=== PATIENT | male | born 1940 | race Caucasian/White ===

== ENCOUNTER → 2021-02-10 | Outpatient (CLI) | payer MEDICARE, SELFPAY ==
[2021-02-10 17:03] LABS: Bacteria 0 SEEN /hpf (None Seen); Mucous, Urine 0 SEEN /hpf (<or=2+); Squamous Epithelial Cells - UA 0 SEEN /hpf (0-5); White Blood Cells 0 SEEN /hpf (0-5)
[2021-02-10 17:45] LABS: Color, Urine Yellow (Yellow); Glucose, Dipstick Normal (Normal); Ketone-Dipstick Negative (Negative); Leukocyte Esterase-Dipstick Negative /ul (Negative); Nitrite-Dipstick Negative (Negative); Occult Blood-Urine 50 /ul (Negative); Protein-Dipstick Negative (Negative); Urine Bilirubin Dipstick Negative (Negative); Urine Clarity Clear (Clear); Urine Urobilinogen Normal (Normal)
[2021-02-10 17:52] LABS: Calcium Oxalate Crystals Ur 0 /hpf (<or=2+); Red Blood Cells-Urine 0-5 SEEN /hpf (0-5)
== END | disposition home or self-care (01) ==
PROVIDERS: Referring Provider Nurse Practitioner Adult Health; Visit Provider Nurse Practitioner Adult Health
DX: R31.29 Other microscopic hematuria (principal)
CPT/HCPCS: 81001

== ENCOUNTER → 2021-06-26 11:40 | Outpatient (CLI) | payer MEDICARE, SELFPAY ==
--- NOTE | 2021-06-26 11:45 | CT_ITS ---
STUDY: CT ABDOMEN AND PELVIS WITHOUT CONTRAST REASON FOR EXAM: Male, 80 years old. 2 day history of left flank pain. Gross hematuria. Prior splenectomy. RADIATION DOSAGE (If Supplied By Facility): CTDIvol = ( 24.18 ) mGy, DLP = ( 1156.90 ) mGycm TECHNIQUE: Transaxial images were obtained from the dome of the diaphragm to the symphysis pubis without oral contrast, and without intravenous contrast. Sagittal and coronal images were reconstructed. Individualized dose optimization techniques were used for this CT. COMPARISON: None. FINDINGS: There is elevation of the left hemidiaphragm. Mild increased markings at the lung bases suggestive of scarring. Tiny calcified granuloma in the left lower lobe. Suggestive of a The visualized portions of the heart are within normal limits. Normal liver. There are multiple gallstones. Normal spleen. There are pancreatic calcifications in the distribution of the ducts consistent with chronic pancreatitis. Pancreatic atrophy. Normal bilateral adrenal glands. Small nonobstructive right intrarenal calculi. The largest measures 7.6 mm in the lower pole. Tiny nonobstructive plaque within the upper pole calyx of the left kidney. Mild degree nonspecific bilateral perinephric stranding. Normal visualized stomach. Normal small intestine. There are multiple colonic diverticula consistent with diverticulosis. The appendix is visualized and appears normal. There is diffuse atherosclerotic calcification of the abdominal aorta and major visceral branches., without a demonstrated aneurysm. Normal inferior vena cava. Normal retroperitoneum. Nonspecific increased markings in the root of the mesenteric fat. This is a nonspecific finding. Normal urinary bladder. The prostate measures 3.8 cm x 4.4 cm. Focal calcifications in the central portion of the prostate. There is a 2 cm hypodensity in the midportion of the prostate. Normal abdominal wall. There are diffuse degenerative changes of the visualized lumbar spine. The patient is status post right thoracotomy placement. This causes beam hardening artifact in the pelvis. CT/Abdomen/Pelvis without Cont IMPRESSION: Bilateral nonobstructive intrarenal calculi. Mild degree of nonspecific perinephric stranding. Pancreatic atrophy. Diffuse pancreatic calcifications. Electronically Signed: Keith Martinez MD at 12:23 EST , Service support ,
== END ==
PROVIDERS: PCP Physician Assistant; Referring Provider Urology; Visit Provider Urology
DX: R31.0 Gross hematuria (principal); R10.84 Generalized abdominal pain
CPT/HCPCS: 74176

== ENCOUNTER 2022-09-28 10:11 | Day surgery (SDC) | payer MEDICARE, SELFPAY ==
[2022-09-28] VITALS (8 sets, daily range): BP systolic 78–119; BP diastolic 51–88; PULSE 54–78; RESP 14–16; TEMP 36.3–36.7; O2SAT 91–100; BMI 29.0
--- NOTE | 2022-09-28 | IMM_PTH ---
PATIENT: OSBALDO OLEARY LOC: EN U#:[id number] AGE/SX: 82/M ROOM: RE09/28/[address]: Dr. Maco Ram DO : 1940 BED: DIS: 09/28/2022 SPEC #: [id number] RECD: 09/30/22 13:17 STATUS: JOY KIAH #: [id number] NAYELY: 09/28/22 00:[address]: Maco Ram DEPT: IMMUNOHISTOCHEMISTRY RECD BY: Garima Esteban Tissues: A - Esophagus, NOS Procedures: P53 (initial) KI-67 (add) PHYSICIAN & INSTITUTION [place] [id number] SPECIMEN INFORMATION: Tissue Source: A ? Distal esophagus Clinical Info: Dysphagia, screening Specimen Number: [id number] CPT code: 98304, 62635 METHODOLOGY: Deparaffinized sections of prefer/formalin-fixed tissue or PAP/DQ stained slides are incubated with monoclonal/polyclonal antibodies/oligonucleotide probes. Localization is made via biotin free immunoperoxidase method. Appropriate controls are performed and reacted as expected. Results on target cell population are indicated in the following table: RESULTS: ANTIBODY / CLONE RESULT Block A P53 (DO-7) positive, focal Ki-67 (30-9) positive, low to moderate These tests were developed and their performance characteristics determined by [facility]. They may not have been cleared or approved by the U.S. Food and Drug Administration. The FDA has determined that such clearance or approval is not necessary. The above immunohistochemical/dualISH markers are ordered and reviewed by the Pathologist. INTERPRETATION: A. Distal esophagus, biopsy: Indefinite for dysplasia. DANIELLA:leroy 10/01/2022
[2022-09-28] MEDS: Lactated Ringers 1,000 ML 15 ML IV (10:40)
--- NOTE | 2022-09-28 11:20 | PCM.HP.BLA ---
History and Physical Date of Admission: 09/28/22 81 M who presents to the office today for Initial consult. Alden established with this clinic 07.29.22 with referral from PCP for evaluation of change in stool, change in taste, esophageal fullness and pain with feeling of dysphagia, rectal bleeding. PMH includes obesity; HTN; right bundle branch block; urolithiasis. ? Pt reports having some stomach issues starting a year or so ago. Has concerns about colon cancer. Last scope he says was 40 or so years ago. Experiencing external hemorrhoids that are worse when bowels are hard. Reports having one normal BM a day with periodic constipation based on what he eats. Does take OTC stool softener and Preparation H for the hemorrhoids which temporarily relieves symptoms. Pt takes Prevacid daily which keeps his acid reflux under control. Does not have trouble swallowing foods but says food does not taste good anymore. Has a bad taste in his mouth all the time that goes deep into his throat. Often wakes up in the morning feeling as though food or saliva collects in his throat. He spends time in the morning clearing his throat. Does not experience any nausea or vomiting. ? ROS Const Constitutional: No fatigue ENT ENT: No difficulty swallowing Cardio Cardiology: Positive for other Gastro GI: Positive for bloating, constipation, diarrhea, heartburn and excessive flatus; No abdominal pain, belching, change in bowel habits, change in stool character, coffee ground emesis, cramping, difficulty swallowing, feeling full early, incontinent of stools, Vomiting blood/hematemesis, Blood in stool, loose stools, Black,tarry stools, nausea/dyspepsia, pain with swallowing, vomiting or other Musc Musculoskeletal: Positive for back pain and Arthritis; No joint pain Skin Skin: No yellowing of the eye or itchy eyes Psych Psychiatric: No anxiety and No depression Endo Endocrine: No fatigue Aller/Imm Allergy/Immunologic: No itchy eyes Michael/Lymp Hematologic/Lymphatic: No easy bleeding or easy bruising Exam Const General: cooperative and comfortable Nutritional Appearance: average body habitus and well nourished HENCA Head: normal to inspection Ears: hearing grossly normal bilaterally Nose: external nose normal Face and sinus: normal facial exam Mouth: oral mucosae normal Throat: posterior oropharynx normal Eyes General: appearance normal, both eyes and all related structures Neck Neck: normal visual inspection Chest Chest palpation & inspection: normal inspection of the chest and normal palpation of entire chest wall Resp Effort & Inspection: normal respiratory effort Auscultation: Bilateral: Clear to Auscultation Cardio Palpation: normal PMI Rate: regular rate Rhythm: regular rhythm GI Inspection: normal to inspection Auscultation: normal bowel sounds Percussion: normal to percussion Palpation: no hepatosplenomegaly Skin General: no rashes or lesions noted Neuro General: patient alert Extrem General: normal to inspection Psych Affect: normal affect Quality Reporting Tobacco Screening ([facility] 138) Smoking Status: Never smoker Assessment and Plan Assessment and Plan (1) Dysphagia: ?Status:?Acute ?Plan: The differential diagnosis for his esophageal dysphagia in the setting of gastroesophageal reflux disease and bowel smelling taste in the back of his mouth would be a Zenker's diverticulum, erosive esophagitis, eosinophilic esophagitis, hiatal hernia or a thanks.? He will undergo an upper endoscopy to his upper GI tract.? He was explained alternatives, risks, benefits, infection. He will have an ASA of 3. Continue current medications. (2) Encounter for screening colonoscopy for [id number] patient: ?Status:?Acute ?Plan: He will screening colonoscopy.? He was explained alternatives, risk, benefits of bleeding, infection, sepsis, perforation and .? He willhave an ASA of 3. I have examined the patient and the H&P has been reviewed. There are no clinical changes since date of exam.
--- NOTE | 2022-09-28 11:45 | EGD_PTH ---
PATIENT: OSBALDO OLEARY LOC: EN U#:[id number] AGE/SX: 82/M ROOM: RE09/28/[address]: Dr. Maco Ram DO : 1940 BED: DIS: 09/28/2022 SPEC #: [id number] RECD: 09/28/22 13:51 STATUS: JOY RENEMariajose #: [id number] NAYELY: 09/28/22 11:[address]: Maco Ram DEPT: SURGICAL PATHOLOGY RECD BY: Kimmy Alaniz Tissues: A - Esophagus, NOS B - Cecum, NOS Procedures: Special Stain Group II Surgery Specimen Level IV Alcian Blue/PAS (control) HEADER OPERATION: Colonoscopy, EGD (MAC) and biopsy PRE-OP DIAGNOSIS: Dysphagia, screening TISSUE SUBMITTED: A ? Distal esophagus biopsy, B ? Cecal polyp MICROSCOPIC DIAGNOSIS A. Distal esophagus, biopsy: Fragments of gastroesophageal mucosa with focal intestinal metaplasia (goblet cell metaplasia), consistent with Hunter's esophagus. Chronic inflammation. Indefinite for dysplasia. See comment. B. Cecal polyp, biopsy: Fragments of tubular adenoma. SJ:leroy 09/30/2022 COMMENT A. Immunohistochemistry ([id number]) for P53 and Ki-67 will be performed and results will be reported separately. Alcian blue/PAS stain with matched control is used in the evaluation of the specimen. MICROSCOPIC DESCRIPTION Slides are reviewed. GROSS DESCRIPTION A - Received in fixative is one container labeled with the patient's name and designated distal esophagus. The specimen consists of multiple irregular fragments of light mcnamara soft tissue that in aggregate measure 1.5 x 0.6 x 0.1 cm. The specimen is totally submitted in one cassette. B - Received in fixative is one container labeled with the patient's name and designated cecal polyp. The specimen consists of multiple irregular fragments of light mcnamara soft tissue that in aggregate measure 1.0 x 1.0 x 0.1 cm. The specimen is totally submitted in one cassette. / AM:leroy 09/29/2022 TC:3 CPT: 74471 x2, 95665
--- NOTE | 2022-09-28 12:35 | OP.EGD_ITS ---
Patient Name: Alden Butler Procedure Date: 09/28/2022 11:57 AM Date of : 1940 Age: 82 Procedure: Upper GI endoscopy Indications: Dysphagia Providers: Maco Ram DO Medicines: Monitored Anesthesia Care Patient Profile: This is an 82 year old male. Refer to note in patient chart for documentation of history and physical. Patient has symptoms of chronic dysphagia. Complications: No immediate complications. Procedure: Pre-Anesthesia Assessment: - Prior to the procedure, a History and Physical was performed, and patient medications and allergies were reviewed. The risks and benefits of the procedure and the sedation options and risks were discussed with the patient. All questions were answered and informed consent was obtained. Patient identification and proposed procedure were verified by the physician in the pre-procedure area. Mental Status Examination: alert and oriented. Prophylactic Antibiotics: The patient does not require prophylactic antibiotics. Prior Anticoagulants: The patient has taken no previous anticoagulant or antiplatelet agents. ASA Grade Assessment: II - A patient with mild systemic disease. After reviewing the risks and benefits, the patient was deemed in satisfactory condition to undergo the procedure. The anesthesia plan was to use monitored anesthesia care (MAC). Immediately prior to administration of medications, the patient was re-assessed for adequacy to receive sedatives. The heart rate, respiratory rate, oxygen saturations, blood pressure, adequacy of pulmonary ventilation, and response to care were monitored throughout the procedure. The physical status of the patient was re-assessed after the procedure. After obtaining informed consent, the endoscope was passed under direct vision. Throughout the procedure, the patient's blood pressure, pulse, and oxygen saturations were monitored continuously. The Colonoscope was introduced through the mouth, and advanced to the second part of duodenum. The upper GI endoscopy was accomplished without difficulty. The patient tolerated the procedure well. Scope In: 12:08:21 PM Scope Out: 12:14:02 PM Total Procedure Duration Time 0 hours 5 minutes 41 seconds Findings: A moderate Schatzki ring was found in the lower third of the esophagus. A guidewire was placed and the scope was withdrawn. Dilation was performed with a Savary dilator with no resistance at 45 Fr. The dilation site was examined and showed moderate improvement in luminal narrowing. Estimated blood loss was minimal. The Z-line was irregular and was found 39 cm from the incisors. Biopsies were taken with a cold forceps for histology. Verification of patient identification for the specimen was done. Estimated blood loss was minimal. A medium-sized hiatal hernia was present. Diffuse prominent gastric folds were found in the gastric body. The first portion of the duodenum was normal. Impression: - Moderate Schatzki ring. Dilated. - Z-line irregular, 39 cm from the incisors. Biopsied. - Medium-sized hiatal hernia. - Enlarged gastric folds. - Normal first portion of the duodenum. Recommendation: - Discharge patient to home. - Resume previous diet. - Continue present medications. - Await pathology results. Procedure Code(s): --- Professional --- 10593, Esophagogastroduodenoscopy, flexible, transoral; with insertion of guide wire followed by passage of dilator(s) through esophagus over guide wire 10650, 59,51, Esophagogastroduodenoscopy, flexible, transoral; with biopsy, single or multiple CPT copyright 2017 [employer]. All rights reserved. The codes documented in this report are preliminary and upon cms expert review may be revised to meet current compliance requirements. Maco Ram DO 09/28/2022 12:35:05 PM This report has been signed electronically. Number of Addenda: 0 Note Initiated On: 09/28/2022 11:57 AM
--- NOTE | 2022-09-28 12:35 | OP.CCLET_ITS ---
09/28/2022 Lady Weber Re : Upper GI endoscopy procedure for Alden Griffinr Tia This procedure was performed on Wednesday, September 28, 2022. My impressions and recommendations are as follows: Impressions : - Moderate Schatzki ring. Dilated. - Z-line irregular, 39 cm from the incisors. Biopsied. - Medium-sized hiatal hernia. - Enlarged gastric folds. - Normal first portion of the duodenum. Recommendations : - Discharge patient to home. - Resume previous diet. - Continue present medications. - Await pathology results. My findings are described in the full procedure note, which is enclosed. If I can be of further assistance, please feel free to contact me at . Sincerely, Maco Ram, 09/28/2022 12:35:05 PM This report has been signed electronically.
--- NOTE | 2022-09-28 12:40 | OP.CCLET_ITS ---
09/28/2022 Tia Re : Colonoscopy procedure for Alden Griffinr Tia This procedure was performed on Wednesday, September 28, 2022. My impressions and recommendations are as follows: Impressions : - Diverticulosis in the recto-sigmoid colon, in the sigmoid colon and in the descending colon. - One 9 mm polyp in the cecum, removed with a cold snare. Resected and retrieved. - Melanosis in the colon. Recommendations : - Discharge patient to home. - Resume previous diet. - Continue present medications. - Await pathology results. - Repeat colonoscopy in 5 years for surveillance based on pathology results. My findings are described in the full procedure note, which is enclosed. If I can be of further assistance, please feel free to contact me at . Sincerely, Maco Ram, 09/28/2022 12:39:40 PM This report has been signed electronically.
--- NOTE | 2022-09-28 12:40 | OP.COLON_ITS ---
Patient Name: Alden Butler Procedure Date: 09/28/2022 12:14 PM Date of : 1940 Age: 82 Procedure: Colonoscopy Indications: Screening for colorectal malignant neoplasm Providers: Maco Ram DO Medicines: Monitored Anesthesia Care Patient Profile: This is an 82 year old male. Refer to note in patient chart for documentation of history and physical. Patient has symptoms of chronic dysphagia. Last Colonoscopy: 10 years ago. Complications: No immediate complications. Procedure: Pre-Anesthesia Assessment: - Prior to the procedure, a History and Physical was performed, and patient medications and allergies were reviewed. The risks and benefits of the procedure and the sedation options and risks were discussed with the patient. All questions were answered and informed consent was obtained. Patient identification and proposed procedure were verified by the physician in the pre-procedure area. Mental Status Examination: alert and oriented. Prophylactic Antibiotics: The patient does not require prophylactic antibiotics. Prior Anticoagulants: The patient has taken no previous anticoagulant or antiplatelet agents. ASA Grade Assessment: II - A patient with mild systemic disease. After reviewing the risks and benefits, the patient was deemed in satisfactory condition to undergo the procedure. The anesthesia plan was to use monitored anesthesia care (MAC). Immediately prior to administration of medications, the patient was re-assessed for adequacy to receive sedatives. The heart rate, respiratory rate, oxygen saturations, blood pressure, adequacy of pulmonary ventilation, and response to care were monitored throughout the procedure. The physical status of the patient was re-assessed after the procedure. After I obtained informed consent, the scope was passed under direct vision. Throughout the procedure, the patient's blood pressure, pulse, and oxygen saturations were monitored continuously. The Colonoscope was introduced through the anus and advanced to the cecum, identified by appendiceal orifice and ileocecal valve. The ileocecal valve, appendiceal orifice, and rectum were photographed. Scope In: 12:16:52 PM Scope Withdrawal Time 0 hours 8 minutes 19 seconds Scope Out: 12:27:48 PM Total Procedure Duration Time 0 hours 10 minutes 56 seconds Findings: The perianal and digital rectal examinations were normal. Many small and large-mouthed diverticula were found in the recto-sigmoid colon, sigmoid colon and descending colon. A 9 mm polyp was found in the cecum. The polyp was sessile. The polyp was removed with a cold snare. Resection and retrieval were complete. Verification of patient identification for the specimen was done. Estimated blood loss was minimal. A diffuse area of moderate melanosis was found in the entire colon. Impression: - Diverticulosis in the recto-sigmoid colon, in the sigmoid colon and in the descending colon. - One 9 mm polyp in the cecum, removed with a cold snare. Resected and retrieved. - Melanosis in the colon. Recommendation: - Discharge patient to home. - Resume previous diet. - Continue present medications. - Await pathology results. - Repeat colonoscopy in 5 years for surveillance based on pathology results. Procedure Code(s): --- Professional --- 42174, Colonoscopy, flexible; with removal of tumor(s), polyp(s), or other lesion(s) by snare technique CPT copyright 2017 [employer]. All rights reserved. The codes documented in this report are preliminary and upon pc support specialist review may be revised to meet current compliance requirements. Maco Ram DO 09/28/2022 12:39:40 PM This report has been signed electronically. Number of Addenda: 0 Note Initiated On: 09/28/2022 12:14 PM
== END 2022-09-28 13:50 | disposition home or self-care (01) ==
LOC: EN 10:12 → AC 10:13
PROVIDERS: Referring Provider Internal Medicine Gastroenterology; Visit Provider Internal Medicine Gastroenterology
PROC: 0DJD8ZZ Inspection of Lower Intestinal Tract, Via Natural or Artificial Opening Endoscopic (ICD-10-PCS; CPT 45378; principal; 2022-09-28 11:40)
DX: Z12.11 Encounter for screening for malignant neoplasm of colon (principal); R13.10 Dysphagia, unspecified; K57.30 Diverticulosis of large intestine without perforation or abscess without bleeding; K63.5 Polyp of colon; K63.89 Other specified diseases of intestine; K44.9 Diaphragmatic hernia without obstruction or gangrene
CPT/HCPCS: 43248; 45385; 43239; 88305; 88313; 88341; 88342; J7120

== ENCOUNTER → 2023-02-15 | Outpatient (CLI) | payer MEDICARE, SELFPAY ==
--- NOTE | 2023-02-15 06:42 | CT_ITS ---
ACR Level 3 findings have been noted. An addendum which confirms receipt of the report will follow. EXAM: CT Abdomen And Pelvis W/ Contrast Injection HISTORY: GROSS HEMATURIA dark urine x 6+ months, left testicle pain, hx kidney stones. Prior bowel resection, spleen removed, TURP, kidney stone removed, hypertension. TECHNIQUE: Routine protocol CT abdomen pelvis. IV Contrast: IV 100mL Isovue-370 . Oral Contrast: without. Sagittal and coronal images were reconstructed. RADIATION DOSAGE (If Supplied By Facility): CTDIvol = ( 17.86 ) mGy, DLP = ( 1343.91 ) mGycm Individualized dose optimization techniques were used for this CT. COMPARISON: CT abdomen and pelvis 06/26/2021. LIMITATIONS: None. FINDINGS: LOWER CHEST: Calcified granulomata in the right lung base. Elevated left hemidiaphragm unchanged. LIVER: Unremarkable. GALLBLADDER/BILE DUCTS: Multiple gallstones in the gallbladder. PANCREAS: Unremarkable. SPLEEN: Not identified. Surgically absent. ADRENAL GLANDS: Unremarkable. KIDNEYS / URETERS: There is a large 15 x 10 x 15 mm calculus in the right renal pelvis at the ureteropelvic junction. Mild right hydronephrosis, and stranding about the right renal pelvis. A few smaller calculi in both kidneys. No hydronephrosis on the left. Tiny exophytic structure in the left kidney is likely a cyst but too small to adequately characterize. BOWEL / MESENTERY: Surgical clips in the left lower abdomen. Short segment of mildly dilated small bowel in the left lower abdomen at the surgical clips, likely postsurgical distortion related to the anastomosis. This is similar to prior study. No adjacent stranding. Scattered diverticula in the colon. Suggestion of wall thickening of the ascending through transverse colon is likely suboptimal distention. No bowel obstruction. APPENDIX: Identified and normal. No evidence of acute appendicitis. PERITONEUM: No free air. No free fluid. VESSELS: Abdominal aorta is normal caliber. RETROPERITONEUM: Unremarkable. REPRODUCTIVE ORGANS: Unremarkable. BLADDER: Mildly distended. Partially obscured by the artifact from the surgical hardware. ABDOMINAL WALL: Unremarkable. BONES: Surgical hardware in both hips. Degenerative changes in the lumbar spine OTHER: None. CT/Abdomen/Pelvis W IV Cont ONLY IMPRESSION: 1. Large 15 mm calculus right renal pelvis at the ureteropelvic junction with mild right hydronephrosis. 2. Bilateral nephrolithiasis. 3. Cholelithiasis. 4. Suggestion of wall thickening of the ascending to transverse colon most likely nondistention, colitis less likely. 5. Focally mildly dilated small bowel left lower abdomen likely related to the surgical anastomosis. Electronically Signed: Maki Vela MD at 8:14 EDT ,
[2023-02-15 07:10] LABS: CREATININE FINGERSTICK < 0.9 mg/dL (0.70-1.30); EGFR FINGERSTICK > 60.0000 mL/min (>60)
== END | disposition home or self-care (01) ==
LOC: CT 06:37
PROVIDERS: PCP Physician Assistant; Referring Provider Urology; Visit Provider Urology
DX: R31.0 Gross hematuria (principal)
CPT/HCPCS: 74177; Q9967

== ENCOUNTER 2023-03-04 22:45 | Emergency (ER) | payer MEDICARE, SELFPAY ==
[2023-03-04 22:46] VITALS: BP 160/90; PULSE 72; RESP 15; TEMP 36.9; O2SAT 94; BMI 29.7
--- NOTE | 2023-03-04 23:11 | ED.VIS.GI ---
HPI HPI - GI History of Present Illness Chief Complaint: Flank Pain Informant: patient Narrative Narrative: Patient was recently diagnosed with a large right renal/ureteral stone with hydronephrosis, he had lithotripsy with Dr. Lawrence this past week, he has been doing well without the need for any pain medication, he removed stent today at home, and about an hour or 2 prior to arrival he had sudden onset of pain in the right side radiating into the back that felt like prior kidney stone pain. Went to urinate and felt like it was difficult to get urine out. He was able at home, and here. At home he saw sand/sediment in the toilet. No gross blood. No fevers or chills. No nausea or vomiting. He took an oxycodone, states his pain is still significant which brought him to the emergency department, has not contacted urology yet on this. [facility] Medical History Change in stool Elevated blood sugar Gastric reflux GERD (gastroesophageal reflux disease) Hemorrhage of anus and rectum History of stress test Hypertension Non-smoker Obesity Polyosteoarthritis, unspecified RBBB Renal calculus Right calf pain Risk for falls SOB (shortness of breath) on exertion Testicular pain Vertigo Home Medications ascorbic acid (vitamin C) 500 mg tablet (Vitamin C) 500 mg PO DAILY 09/23/22 [History Last Taken Unknown] cholecalciferol (vitamin D3) 25 mcg (1,000 unit) tablet (Vitamin D3) 25 mcg PO DAILY 09/23/22 [History Last Taken Unknown] cyanocobalamin (vitamin B-12) 100 mcg tablet (Vitamin B-12) 100 mcg PO DAILY 09/23/22 [History Last Taken Unknown] vitamin E 100 unit tablet 100 unit PO DAILY 09/23/22 [History Last Taken Unknown] hydrocortisone acetate 25 mg rectal suppository 25 mg [place] BID 2 weeks #24 ea 10/19/22 [Rx Last Taken Unknown] pantoprazole 40 mg tablet,delayed release 40 mg PO DAILY #30 tabs 02/22/23 [Rx Last Taken Unknown] ciprofloxacin HCl 500 mg tablet 500 mg PO BID #10 TABLETS 03/05/23 [Rx Last Taken Unknown] oxycodone-acetaminophen 5 mg-325 mg tablet 1 tab PO Q4H PRN Pain 3 days #12 TABLETS 03/05/23 [Rx Last Taken Unknown] Allergy/AdvReac Type Severity Reaction Status Date / Time No Known Allergies Allergy Verified 03/04/23 22:53 Surgical History History of total left hip arthroplasty Hx of colectomy Hx of total hip arthroplasty Social History Smoking Status: Never smoker ROS ROS ED Constitutional Constitutional ED: Denies chills or fever(s) Eyes Eyes: Denies change in vision or diplopia ENT ENT ED: Denies rhinorrhea or sore throat Cardiovascular Cardiovascular: Denies chest pain or palpitations Respiratory/Chest Respiratory/Chest: Denies cough or dyspnea Gastrointestinal Gastrointestinal: Reports abdominal pain; Denies diarrhea, nausea or vomiting Genitourinary Genitourinary ED: Reports as per HPI; Denies dysuria or hematuria Musculoskeletal Musculoskeletal: Reports back pain; Denies neck pain Integumentary Denies abscess or rash Neurologic Neurologic: Denies headache(s), paresthesias or weakness Psychiatric Psychiatric: Denies anxiety or suicidal thoughts EXAM Physical Exam Const Vital Signs: 03/04/23 22:46 Temperature 98.4 F Temperature Source Temporal Pulse Rate 72 Respiratory Rate 15 Blood Pressure 160/90 H Blood Pressure Mean 113 Pulse Ox 94 Oxygen Delivery Method Room Air Positive well nourished and well developed Constitutional Narrative: Well-appearing in no distress. Legs crossed lying in bed comfortably. General Appearance ED: well developed and NAD HEENT Reports moist mucous membranes normocephalic and atraumatic Eyes PERRL and EOMs intact bilaterally Neck full ROM and supple Resp normal respiratory effort and clear to auscultation bilaterally Cardio regular rate, regular rhythm and no murmurs GI non-distended GI Narrative: Subjective tenderness throughout the right side no objective tenderness, guarding, rebound. Auscultation: normoactive bowel sounds Palpation: soft Back/Spine Back/Spine Narrative: Mildly tender right CVA subjectively. No rash. General Back: other FROM Extremity normal to inspection General Extremety ED: Negative for edema, pulses abnormal or tenderness General Extremity: Negative for edema or pulses abnormal Neuro oriented x3, CN's II-XII intact bilaterally and no sensory deficits noted Sensorium / Orientation: awake and alert Motor Exam: strength 5/5 throughout Skin no rashes or lesions noted and no wounds MDM MDM MDM Narrative Medical decision making narrative: Patient was able to provide urine, did have some pyuria and had an 100 leukocyte esterase, less likely to be infected, and he is doing much better after IV analgesics. He is comfortable with going home, we will give him a prescription for oxycodone, send urine culture, and place him on a few days of antibiotics in the meantime. Advised to follow-up with his urologist in the morning he is comfortable with that plan will be sent home with urine strainers as well. Likely having ureteral colic due to a piece of the broken up stone that he had. Given all of this the fact that he is stable clinically and hemodynamically, without any fever I do not think he needs to be emergently consulted by urology or have a stent replaced at this time. Lab Data Attestation: I reviewed the patient's lab results. Labs: Laboratory Results - last 24 hr 03/04/23 23:20 Urine Color Yellow Urine Clarity Sl. Cloudy Urine pH 6.0 Ur Specific Rozet 1.020 Urine Protein 100 H Urine Glucose (UA) Normal Urine Ketones Negative Urine Occult Blood 250 H Urine Nitrite Negative Urine Bilirubin Negative Urine Urobilinogen Normal Ur Leukocyte Esterase 100 H Urine RBC 25-50 SEEN Urine WBC 10-25 SEEN Ur Squamous Epith Cells 0 SEEN Urine Bacteria RARE Urine Mucus 0 SEEN Discharge Plan Triage Chief Complaint: Flank Pain ED Provider: Rm Roberto Dx/Rx/DC Orders Clinical Impression: Urolithiasis, Renal colic on right side Instructions: ED Kidney Stone w/ Colic Prescriptions: New ciprofloxacin HCl [ciprofloxacin HCl] 500 mg tablet 500 mg PO BID Qty: 10 0RF oxycodone-acetaminophen [oxycodone-acetaminophen] 5-325 mg tablet 1 tab PO Q4H PRN (Reason: Pain) 3 Days Qty: 12 0RF No Action hydrocortisone acetate 25 mg suppository 25 mg [place] BID 14 Days Qty: 24 3RF cyanocobalamin (vitamin B-12) [Vitamin B-12] 100 mcg Tablet 100 mcg PO DAILY ascorbic acid (vitamin C) [Vitamin C] 500 mg Tablet 500 mg PO DAILY vitamin E 100 unit Tablet 100 unit PO DAILY cholecalciferol (vitamin D3) [Vitamin D3] 25 mcg (1,000 unit) Tablet 25 mcg PO DAILY pantoprazole 40 mg tablet,delayed release (DR/EC) 40 mg PO DAILY Qty: 30 2RF Primary Care Provider: Troy uGo Referrals: Mehul Lawrence MD [Med Staff - Active Staff] - As soon as possible Troy Guo PA [Primary Care Provider] - Disposition Disposition: Home, Self Care
[2023-03-04] MEDS: Ondansetron 4 MG/2 ML Vial IV (23:20)
[2023-03-04] MEDS: Morphine 4 MG/ML Syringe IV (23:20)
[2023-03-04 23:28] LABS: Mucous, Urine 0 SEEN /hpf (<or=2+); Squamous Epithelial Cells - UA 0 SEEN /hpf (0-5)
[2023-03-04 23:29] LABS: Color, Urine Yellow (Yellow); Glucose, Dipstick Normal (Normal); Ketone-Dipstick Negative (Negative); Leukocyte Esterase-Dipstick 100 /ul (Negative); Nitrite-Dipstick Negative (Negative); Occult Blood-Urine 250 /ul (Negative); Protein-Dipstick 100 mg/dl (Negative); Urine Bilirubin Dipstick Negative (Negative); Urine Clarity Sl. Cloudy (Clear); Urine Urobilinogen Normal (Normal)
[2023-03-04 23:38] LABS: Bacteria RARE /hpf (None Seen); Red Blood Cells-Urine 25-50 SEEN /hpf (0-5); White Blood Cells 10-25 SEEN /hpf (0-5)
[2023-03-05] MEDS: Ciprofloxacin 500 MG Tablet PO (00:23)
== END 2023-03-05 00:28 | disposition home or self-care (01) ==
PROVIDERS: Emergency Provider Emergency Medicine; PCP Physician Assistant; Visit Provider Emergency Medicine
DX: N23 Unspecified renal colic (principal); I10 Essential (primary) hypertension; K21.9 Gastro-esophageal reflux disease without esophagitis; Z79.899 Other long term (current) drug therapy; Z90.49 Acquired absence of other specified parts of digestive tract; Z96.642 Presence of left artificial hip joint
CPT/HCPCS: 81001; 87086; 96374; 96375; 99284; A4216; J2405

== ENCOUNTER → 2024-02-23 | Outpatient (CLI) | payer MEDICARE, SELFPAY ==
--- NOTE | 2024-02-23 07:06 | US_ITS ---
STUDY: ABDOMINAL ULTRASOUND - RIGHT UPPER QUADRANT REASON FOR VISIT: Male, 83 years old GALLSTONES -- HX OF NEPHROLITHIASIS TECHNIQUE: Ultrasound evaluation of the right upper quadrant was performed with real-time and static reynolds-scale imaging. TECHNICAL QUALITY: Adequate. COMPARISON: None. FINDINGS: Liver: The liver measures 17 cm. There is normal echogenicity of the liver. The bile ducts are within normal limits. There is hepatic color flow. The direction of portal flow is hepatopetal. There is no demonstrated mass lesion. Gallbladder: Normal distended gallbladder. The gallbladder wall measures 2.6 mm. There is a negative sonographic García''s sign. There is no pericholecystic fluid. There are multiple echogenic structures within the gallbladder, consistent with multiple gallstones. Common Bile Duct (C.B.D.): The common bile duct measures 3.5 mm. Pancreas: There is nonvisualization of the pancreas due to overlying bowel gas. Right Kidney: Normal size of the right kidney. The right kidney measures 11.2 cm x 4.8 cm x 5.2 cm. Normal renal cortex. The right cortex measures 2.0 cm. There is no demonstrated renal mass or cyst. There is no right hydronephrosis. I suspect a 6 mm nonobstructive right intrarenal calculus. US/Abdomen Limited IMPRESSION: Multiple gallstones. Electronically Signed: Keith Martinez MD at 10:38 EDT ,
== END | disposition home or self-care (01) ==
PROVIDERS: PCP Physician Assistant; Referring Provider Physician Assistant; Visit Provider Physician Assistant
DX: K80.20 Calculus of gallbladder without cholecystitis without obstruction (principal)
CPT/HCPCS: 76705